=== PATIENT | male | born 1955 | race Caucasian/White ===

== ENCOUNTER 2017-01-15 21:17 | Emergency (ER) | payer MEDICARE ==
[~2017-01-15] VITALS: Ht 180.3 cm; Wt 82.3 kg
[2017-01-15 21:33] VITALS: BP 123/76; PULSE 63; RESP 18; TEMP 97.6
[2017-01-15] MEDS ORDERED: heart med (22:02)
[2017-01-15] MEDS ORDERED: PERC10TA27 PO (22:02)
[2017-01-15] MEDS ORDERED: AMBI6.25 PO (22:02)
[2017-01-15] MEDS ORDERED: BP med (22:02)
[2017-01-15] MEDS ORDERED: LORA-474 PO (22:02)
[2017-01-15] MEDS ORDERED: METF500T PO (22:02)
[2017-01-15] MEDS ORDERED: cholesterol med (22:02)
--- NOTE | 2017-01-15 22:02 | PD ---
HPI Chief Complaint: Edema Time Seen by Provider: 21:46 Travel History International Travel<30 days: No Contact w/Intl Traveler<30days: No Traveled to known affect area: No History of Present Illness HPI 61-year-old male presents to the emergency room for evaluation of right elbow pain, redness, swelling for the past 2 days. He denies trauma or injury. States he does 300 pushups every day but has not done them since the pain started. He is prescribed Percocet for chronic neck and back pain which has been helping moderately. Pain is worsened with any range of motion of the right upper extremity. Denies paresthesias. The patient denies fever, chills, nausea, and vomiting. PFSH Past Medical History Hx Anticoagulant Therapy: Yes (ASA) Cardiovascular Problems: Yes Diabetes: Yes Social History Tobacco Use: No Allergies-Medications (Allergen,Severity, Reaction): Coded Allergies: No Known Allergies (Unverified , 01/15/17) Review of Systems Except as stated in HPI: all other systems reviewed are Neg Physical Exam Narrative GENERAL: Well-nourished, well-developed male in no acute distress. Afebrile. Ambulatory. SKIN: Focused skin assessment warm/dry. Mild erythema of the right elbow. No ecchymosis. HEAD: Normocephalic. EYES: No scleral icterus. No injection or drainage. NECK: Supple, trachea midline. No JVD or lymphadenopathy. CARDIOVASCULAR: Regular rate and rhythm without murmurs, gallops, or rubs. RESPIRATORY: Breath sounds equal bilaterally. No accessory muscle use. MUSCULOSKELETAL: No cyanosis. Mild to moderate edema of the right elbow especially over the olecranon. Full range of motion of the right upper shotty. 2+ radial pulse. Radial, ulnar, and median nerves intact. Data Data Last Documented VS Vital Signs Date Time Temp Pulse Resp B/P (MAP) Pulse Ox O2 Delivery O2 Flow Rate FiO2 01/15/17 21:33 97.6 63 18 123/76 (92) MDM Medical Decision Making Medical Screen Exam Complete: Yes Emergency Medical Condition: Yes Medical Record Reviewed: Yes Differential Diagnosis Olecranon bursitis, cellulitis, edema, strain, sprain Narrative Course 61-year-old male presents to the emergency room for evaluation of right elbow pain, redness, and swelling for the past 2 days. He denies trauma or injury. No systemic signs of infection. Vital signs stable. Right upper extremity is neurovascularly intact with 2+ radial pulse. Radial, ulnar, median nerves intact. Patient has full range of motion. There is moderate edema, erythema, and increased warmth over the right olecranon. There is a 3 mm scab right in the center of the olecranon without purulent drainage. No lymphangitis. Erythema is very mild, not indicative of severe cellulitis. This is olecranon bursitis. Patient will be treated empirically with Bactrim and Keflex. Told to apply ice and follow up with a primary care physician or return for worsening symptoms. He understands and agrees to plan. Diagnosis Primary Impression: Olecranon bursitis, right elbow Referrals: Primary Care Physician Additional Instructions: Rest and drink plenty of fluids. Take Bactrim as directed, until gone. Take Keflex as directed, until gone. Apply ice to the affected area for 20 minutes at a time. Follow up with a primary care physician. Return to emergency room for worsening symptoms, as discussed. Med/Other Pt SpecificInfo: Prescription(s) given Disposition: 01 DISCHARGE HOME Condition: Stable Jennifer Marks Jan 15, 2017 22:02
[2017-01-15] MEDS ORDERED: BACT800T5 PO (22:03)
[2017-01-15] MEDS ORDERED: CEPH-460 PO (22:03)
== END 2017-01-15 22:07 | disposition home or self-care (01) ==
LOC: PHEFT 21:17
DX: M70.21 Olecranon bursitis, right elbow (principal); E11.9 Type 2 diabetes mellitus without complications; Z79.01 Long term (current) use of anticoagulants
CPT/HCPCS: 99284